=== PATIENT | female | born 1980 | race Caucasian/White ===

== ENCOUNTER 2018-02-25 10:13 | Emergency (ER) | payer OTHER ==
[~2018-02-25] VITALS: Ht 162.6 cm; Wt 76.2 kg
[2018-02-25 10:22] VITALS: BP 115/70
--- NOTE | 2018-02-25 10:40 | NUR ---
PATIENT PRESENTS TO ED WITH c/o left breast pain with brown/white discharge from incision from biopsy done on 01/28/18 x 3 days. also reports of right breast pain x yesterday. Patient seen by PCP for left breast pain and sent home with abx, which patient is currently taking. Patient denies any fevers or chills. Redness and swelling noted from incision site to left breast. PATIENT STATES PAIN OF 5/10 AT THIS TIME; VSS; PATIENT POSITIONED FOR COMFORT; HOB ELEVATED; BEDRAILS UP X2; BED DOWN. ER MD MADE AWARE OF PT STATUS.
--- NOTE | 2018-02-25 10:50 | NUR ---
Patient being evaluated by physician at bedside.
[2018-02-25] MEDS ORDERED: NEOMYCIN/POLYMYXIN/BACITRACIN 0.9 GM/1 PKT TP ONE (11:00)
[2018-02-25] MEDS ORDERED: CLINDAMYCIN 600 MG/4 ML VIAL IM ONE (11:00)
[2018-02-25] MEDS ORDERED: KETOROLAC 60 MG/2 ML VIAL IM ONE (11:00)
[2018-02-25 11:51] VITALS: BP 115/70
--- NOTE | 2018-02-25 11:51 | NUR ---
Patient discharged with v/s stable. Written and verbal after care instructions given and explained. Patient alert, oriented and verbalized understanding of instructions. Ambulatory with steady gait. All questions addressed prior to discharge. ID band removed. Patient advised to follow up with PMD. Rx of MOTRIN, CLINDAMYCIN, ZYVOX given. Patient educated on indication of medication including possible reaction and side effects. Opportunity to ask questions provided and answered.
== END 2018-02-25 11:51 | disposition home or self-care (01) ==
LOC: MED 10:13
DX: T81.49XA Infection following a procedure, other surgical site, initial encounter (principal); N61.0 Mastitis without abscess
CPT/HCPCS: 87070; 87075; 87205; 96372; 99284; J1885; J3490